=== PATIENT | female | born 1980 | race Caucasian/White ===

== ENCOUNTER → 2020-09-25 16:53 | Outpatient (CLI) | payer OTHER, SELFPAY ==
--- NOTE | ~2020-09-25 | MM_ITS ---
EXAMINATION: MM screening bridget BI w memo HISTORY: Screening TECHNIQUE: Craniocaudal and mediolateral oblique 3-D tomosynthesis images were obtained and synthetic 2-D images were generated. CAD analysis was submitted and interpreted. COMPARISON: No prior mammogram is available for comparison at this institution. BREAST PARENCHYMAL COMPOSITION: There are scattered areas of fibroglandular density. FINDINGS: There is no evidence of suspicious mass, calcification, or architectural distortion to sugg est malignancy in either breast. There has been no suspicious interval change. IMPRESSION: 1. No mammographic evidence of malignancy. 2. Recommend routine screening mammography in one year. BI-RADS Category 1: Negative Reviewed, dictated and finalized at location A.
== END ==
PROVIDERS: PCP Family Medicine; Visit Provider Physician Assistant Medical
DX: Z12.31 Encounter for screening mammogram for malignant neoplasm of breast (principal)
CPT/HCPCS: 77063; 77067

== ENCOUNTER 2024-10-08 02:21 | Day surgery (SDC) | payer OTHER, SELFPAY ==
[2024-09-17 13:49] VITALS: BMI 41.2
--- OUTSIDE RECORDS SUMMARY | 2024-10-08 02:23 | XMS_ITS | Clinical Summary ---
Author Organization [address] lt Address [address] [place] [address] Care Team Providers Care Faucet Polisher Name Role Phone Raymon Wilson MD Primary Care Provider + [phone] Allergies No known active allergies Medications metFORMIN (GLUCOPHAGE) 500 mg tablet Take 1 tablet (500 mg total) by mouth daily 05/30/2023 Active rosuvastatin (CRESTOR) 20 mg tablet Take 1 tablet (20 mg total) by mouth daily 05/30/2023 Active Active Problems Problem Noted Date Diagnosed Date No pathologic diagnosis 06/21/2013 Overview (07/02/2016): No diagnosis Surgical History Surgery Date Site/Laterality Comments OTHER SURGICAL HISTORY 2004 Miscarriage: D & C OTHER SURGICAL HISTORY 2001 : OTHER SURGICAL HISTORY : spontaneous OTHER SURGICAL HISTORY 2006 : OTHER SURGICAL HISTORY 2007 : Medical History Medical History Date Comments Hx Other Medical 2003 Miscarriage Hx Other Medical 2001 ; Outc ome: 40 week Female Hx Other Medical ; Outc ome: Unknown sex Hx Other Medical 2006 ; Outc ome: 38 week Female Hx Other Medical 2007 ; Outc ome: 39 week Female Family History Medical History Relation Name Comments Diabetes Father Diabetes mellit us; Hyperlipidemia Father Hyperlipidemi a; Hypertension Father Hypertension; Colon cancer Sister Cancer, colon; Relation Name Status Comments Father Sister Social History Tobacco Use Types Packs/Day Years Used Date Smoking Tobacco: Never Assessed Alcohol Use Standard Drinks/Week Comments Yes 0 (1 standard drink = 0.6 oz pur e alcohol) Comments Unknown Sex and Gender Information Value Date Recorded Sex Assigned at Not on file 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 Gender Identity Not on file Sexual Orientation Not on file Obstetrics History Last Filed Vital Signs Vital Sign Reading Time Taken Comments Blood Pressure 124/74 07/05/2023 8:11 AM CDT Pulse 101 07/05/2023 8:11 AM CDT Temperature 36.8 C (98.3 F) 07/05/2023 8:11 AM CDT Respiratory Rate 16 07/05/2023 8:11 AM CDT Oxygen Saturation 97% 07/05/2023 8:11 AM CDT Inhaled Oxygen Concentration - - Weight 81.6 kg (180 lb) 07/05/2023 8:11 AM CDT Height 152.4 cm (5') 07/05/2023 8:11 AM CDT Body Mass Index 35.15 07/05/2023 8:11 AM CDT Plan of Treatment Health Maintenance Due Date Last Done Comments Breast Cancer Screening-Mammogram 1978 Cervical Cancer Screening 1978 Colon Cancer Screening-Colonoscopy 1978 Depression Screening 1978 Hepatitis C Screening 1978 DTaP/Tdap/Td Vaccine (1 - Tdap) 1989 Hepatitis B Screening 1996 Regular Well Visit/Exam 18-64 1996 Influenza Vaccine (#1) 2024 HPV Vaccines Aged Out No longer eligi ble based on patient's age to complete this topic Pneumococcal vaccine <65 Aged Out No longer eligible based on patient's age to complete this topic Insurance [place] [address] Care Teams Faucet Polisher Relationship Specialty Start Date End Date Raymon Wilson MD [address] [place] [address] PCP - General Family Medicine 07/05/23
--- OUTSIDE RECORDS SUMMARY | 2024-10-08 02:23 | XMS_ITS | Clinical Summary ---
Author Organization [facility] Address [address] [place] [address] Care Team Providers Care Musical Instrument Maker Or Repairer Name Role Phone Raymon Wilson MD Primary Care Provider Source Comments [facility],non-owned Affiliates and Associated Physician Practices is amultiple site organization consisting of ambulatory clinics and hospital sitesin [place], [place], [place] and [place]. This disclosure is being madepursuant to the Care Everywhere program and may not contain all information available regarding this patient. Last updated 17.[facility] Allergies No known active allergies Medications * Be aware that medications may not be up to date on this document. Alwaysverify current medications with the patient. tobramycin (TOBREX) 0.3 % ophthalmic solution Instill 1 drop into left eye 4 times daily 5 mL 11/25/2018 Active Social History Tobacco Use Types Packs/Day Years Used Date Smoking Tobacco: Never Assessed Comments No Sex and Gender Information Value Date Recorded Sex Assigned at Not on file Legal Sex Female 10:52 AM CDT Gender Identity Not on file Sexual Orientation Not on file Last Filed Vital Signs Vital Sign Reading Time Taken Comments Blood Pressure 122/78 11/25/2018 11:31 AM CDT Pulse 102 11/25/2018 11:31 AM CDT Temperature 36.6 C (97.9 F) 11/25/2018 11:31 AM CDT Respiratory Rate - - Oxygen Saturation - - Inhaled Oxygen Concentration - - Weight 95.7 kg (211 lb) 11/25/2018 11:31 AM CDT Height 154.9 cm (5' 1) 11/25/2018 11:31 AM CDT Body Mass Index 39.87 11/25/2018 11:31 AM CDT Plan of Treatment Health Maintenance Due Date Last Done Comments COLOGUARD (AGES 45-75) - COL ON CA SCREENING 1978 COLON MONITORING 1978 COLONOSCOPY - COLON CA SCREENING 1978 CT COLONOGRAPHY - COLON CA SCREENING 1978 Colorectal Cancer Screening 1978 FIT - COLON CA SCREENING 1978 FLEX SIG - COLON CA SCREENING 1978 LIPID TESTING 1978 MAMMOGRAM 1978 HIV SCREENING 1993 HEPATITIS C SCREENING 09/26/1996 DTAP/TDAP/TD VACCINES (1 - Tdap) 1997 HEPATITIS B VACCINE (1 of 3 - 19+ 3-dose series) 1997 SCREENING FOR DIABETES 11/25/2018 COVID-19 VACCINE (1 - 2023-2 5 season) 2023 DEPRESSION SCREENING 03/28/2024 INFLUENZA VACCINE (#1) 2024 ZOSTER VACCINE (1 of 2) 2028 HIB VACCINE Aged Out No longer eligi ble based on patient's age to complete this topic HPV VACCINE Aged Out No longer eligi ble based on patient's age to complete this topic MENINGOCOCCAL (Group B) VACC INE SHARED DECISION-MAKING Aged Out No longer eligibl e based on patient's age to complete this topic MENINGOCOCCAL GROUPS A/C/Y/W VACCINE Aged Out No longer eligible b ased on patient's age to complete this topic PNEUMOCOCCAL VACCINE Aged Out No long er eligible based on patient's age to complete [place] [address] [facility] Care Teams Musical Instrument Maker Or Repairer Relationship Specialty Start Date End Date Raymon Wilson MD [address] [place] [address] PCP - General Family Medicine 11/25/18
--- OUTSIDE RECORDS SUMMARY | 2024-10-08 02:23 | XMS_ITS | Clinical Summary ---
Author Organization [facility] Address [address] [address] Phone Care Team Providers Care Strip Cutting Machine Operator Name Role Phone Raymon Wilson MD Primary Care Provider [phone] Social History Tobacco Use Types Packs/Day Years Used Date Smoking Tobacco: Never Assessed Comments Unknown Sex and Gender Information Value Date Recorded Sex Assigned at Not on file Legal Sex Female 12:14 AM CDT Gender Identity Not on file Sexual Orientation Not on file Plan of Treatment Health Maintenance Due Date Last Done Comments Hepatitis C Virus (HCV) Screening 1978 TdaP Immunization 1978 Hepatitis B Immunization (1 of 3 - 19+ 3-dose series) 1997 Pap Smear 10/02/1999 Cervical Cancer Screening (CCS) 2008 HPV/Cotest 2008 Cologuard 10/02/2023 Colonoscopy 10/02/2023 Colorectal Cancer Screening 10/02/2023 Immunochemical Fecal Occult Blood 10/02/2023 SARS-COV-2 Immunization ( season) 2023 Influenza Immunization (#1) 2024 Respiratory Syncytial Virus (RSV) Immunization (Adult) (1 - 1-dose 75+ series) 2053 Human Papillomavirus (HPV) Immunization Aged Out No longer eligible b ased on patient's age to complete this topic Meningococcal Immunization (ACWY) Aged Out No longer eligible based on patient's age to complete this topic Pneumococcal Immunization Combined Aged Out No longer eligible based on patient's age to complete this topic Rotavirus Immunization Aged Out No lo nger eligible based on patient's age to complete this topic Care Teams Strip Cutting Machine Operator Relationship Specialty Start Date End Date Raymon Wilson MD [address] [address] PCP - General Family Medicine 11/27/20
--- OUTSIDE RECORDS SUMMARY | 2024-10-08 02:23 | XMS_ITS | Referral Summary ---
Author Organization [address] lt Address [address] [place] [address] Care Team Providers Care Brake Lining Curer Name Role Phone Raymon Wilson MD Primary Care Provider + [phone] Allergies No known active allergies Medications metFORMIN (GLUCOPHAGE) 500 mg tablet Take 1 tablet (500 mg total) by mouth daily 05/30/2023 Active rosuvastatin (CRESTOR) 20 mg tablet Take 1 tablet (20 mg total) by mouth daily 05/30/2023 Active Active Problems Problem Noted Date Diagnosed Date No pathologic diagnosis 06/21/2013 Overview (07/02/2016): No diagnosis Social History Tobacco Use Types Packs/Day Years Used Date Smoking Tobacco: Never Assessed Alcohol Use Standard Drinks/Week Comments Yes 0 (1 standard drink = 0.6 oz pur e alcohol) Comments Unknown Sex and Gender Information Value Date Recorded Sex Assigned at Not on file 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
--- NOTE | 2024-10-08 07:52 | WPDANESEPPF ---
Anes - Initial Pre Proc Eval Procedure: Operation Date: 10/08/24 08:30 Proposed Procedures p Screening Colonoscopy - Kole Rudolph DO Date/Time: 10/08/24 07:52 Surgeon: Kole Rudolph DO Pre Op Diagnosis: Neoplasm screening Patient Data Age: 44 Gender: F Height: 1.45 m Weight: 86.5 kg Allergies Allergy/AdvReac Type Severity Reaction Status Date / Time No Known Allergies Allergy Verified 10/08/24 07:54 Home Medications ?Medication ?Instructions ?Recorded ?Confirmed ?Type ferrous sulfate 325 mg (65 mg 325 mg PO BID #60 tabs 09/15/24 09/25/24 Rx iron) tablet metformin 500 mg tablet,extended 500 mg PO DAILY #90 tabs 09/25/24 09/25/24 Rx release 24 hr rosuvastatin 20 mg tablet (Crestor) 20 mg PO DAILY #90 tabs 09/25/24 09/25/24 Rx Patient hx anesthesia problems: none Family hx anesthesia problems: none Results Review: All pre-operative results and documents have been reviewed as part of the pre-operative evaluation. [facility], [facility] Past Medical History Medical History (Updated 10/08/24 @ 07:53 by River Feldman DO) Diabetes mellitus Mixed hyperlipidemia BMI 37.0-37.9, adult BMI greater than 40 Family History Family History Father Hypertension Family history of heart disease in male family member before age 55 Sibling Carcinoma of colon Mother Family history of malignant neoplasm of breast in first degree relative Social History Social History Smoking status: Never smoker Alcohol intake: current Substance use: never Substance use type: does not use Living arrangements: with family Spiritual care concerns: No Anes - Eval Final PreProcedure Day of Procedure 10/08/24 07:52 Patient weight: morbidly obese Heart: regular rate and rhythm Lungs: clear to auscultation Airway: Mallampati scale class II Neurological: alert and oriented Last oral intake: >/= 8 hours ASA classification: III Emergent: no Anesthetic plan: proceed Anesthesia type and monitoring: general GIVS and standard monitoring Results Review: All pre-operative results and documents have been reviewed as part of the pre-operative evaluation. Informed Consent: The patient's anesthetic plan and its attendant risks and benefits were discussed with the patient/family/POA. Questions were solicited and answers provided to the satisfaction of the patient/family/POA.
[2024-10-08 07:58] LABS: BEDSIDEPREGUCG Negative (Negative)
[2024-10-08] MEDS: LACTATED RINGERS 1,000 ML 150 ML IV CONT (08:07)
--- NOTE | 2024-10-08 08:42 | P.HP_ITS ---
H&P: HPI History of Present Illness Date/Time: 10/08/24 08:42 Chief Complaint: family history of colon cancer Narrative: this is a 44-year-old woman who presents for her 1st colonoscopy. She denies any hematochezia or melena. She has a family history of colon cancer in her sister who was diagnosed at 42. Review of Systems Review of Systems: All systems reviewed & are unremarkable except as noted in HPI and below Constitutional: Constitutional: Denies chills, Denies fever(s), Denies headache(s) and Denies weight loss Eyes: Eyes: Denies change in vision ENT: Denies dizziness, Denies headache(s), Denies neck mass and Denies throat swelling Cardiovascular: Cardiovascular: Denies chest pain, Denies lightheadedness and Denies dyspnea Respiratory: Respiratory: Denies cough, Denies dyspnea and Denies wheezing Gastrointestinal: Gastrointestinal: Denies abdominal pain, Denies change in bowel habits, Denies nausea and Denies vomiting Genitourinary: Genitourinary: Denies hematuria and Denies dysuria Musculoskeletal: Musculoskeletal: Reports as per HPI Integumentary/Breasts: Skin/Breast: Reports as per HPI Neurologic: Denies dizziness and Denies headache(s) Allergic/Immunologic: Allergic/Immunologic: Denies throat swelling and Denies wheezing [facility] Past Medical History Medical History (Updated 10/08/24 @ 07:53 by River Feldman DO) Diabetes mellitus Mixed hyperlipidemia BMI 37.0-37.9, adult BMI greater than 40 Family History Family History Father Hypertension Family history of heart disease in male family member before age 55 Sibling Carcinoma of colon Mother Family history of malignant neoplasm of breast in first degree relative Social History Social History Smoking status: Never smoker Alcohol intake: current Substance use: never Substance use type: does not use Living arrangements: with family Spiritual care concerns: No Meds Home Medications and Allergies Home Medications ?Medication ?Instructions ?Recorded ?Confirmed ?Type ferrous sulfate 325 mg (65 mg 325 mg PO BID #60 tabs 09/15/24 09/25/24 Rx iron) tablet metformin 500 mg tablet,extended 500 mg PO DAILY #90 tabs 09/25/24 09/25/24 Rx release 24 hr rosuvastatin 20 mg tablet (Crestor) 20 mg PO DAILY #90 tabs 09/25/24 09/25/24 Rx Allergies Allergy/AdvReac Type Severity Reaction Status Date / Time No Known Allergies Allergy Verified 10/08/24 07:54 Exam Const: General: no acute distress and alert Orientation/consciousness: patient oriented x3 HENMT: Head: normocephalic and atraumatic Ears: hearing grossly normal bilaterally Face/Nose/Sinus: Normal nares present Mouth: Yes Normal oral and palatal mucosa present Eyes: Periorbital: periorbital findings normal Sclera: sclerae normal EOM: EOMs intact bilaterally Neck: Neck: normal visual inspection, no lymphadenopathy and trachea midline Chest: Chest palpation & inspection: normal inspection of the chest Resp: Effort & Inspection: normal respiratory effort Auscultation: clear to auscultation bilaterally Cardio: Jugular venous distension: no JVD Rate: regular rate Rhythm: regular rhythm Heart sounds: S1 normal heart sound present and S2 normal heart sound present Peripheral pulses: Peripheral pulses 2+ throughout GI: Inspection: normal to inspection GI Palp: Yes Soft to palpation, No Tenderness to palpation present (GI), No Guarding due to palpation present (GI) and No Rebound tenderness present Percussion: Yes normal to percussion Auscultation: normal bowel sounds : General: Yes no CVA tenderness Back/Spine/Pelvis: Back: no CVA tenderness Neuro: General: patient oriented x3, no focal motor deficits and CN's II-XI intact bilaterally Cognition (Neuro): normal cognition Speech: normal speech Motor exam (neuro): 5/5 motor strength present throughout Extrem: General: capillary refill normal and no clubbing, cyanosis or edema Assessment and Plan Assessment and plan (1) Screening for colon cancer: Code(s): Z12.11 - Encounter for screening for malignant neoplasm of colon Status: Acute Assessment and Plan: I have recommended colonoscopy. I have discussed the procedure, risks, benefits, and alternatives. Questions were answered. Patient is agreeable to proceed. (2) Family history of malignant neoplasm of colon in first degree relative diagnosed when younger than 60 years of age: Code(s): Z80.0 - Family history of malignant neoplasm of digestive organs Status: Acute
[2024-10-08 09:06] VITALS: BP 97/49; PULSE 73; RESP 21; O2SAT 100
[2024-10-08 09:16] VITALS: BP 107/59; PULSE 68; RESP 24; O2SAT 100
[2024-10-08 09:26] VITALS: BP 115/65; PULSE 70; RESP 19; O2SAT 100
== END 2024-10-08 09:38 | disposition home or self-care (01) ==
PROVIDERS: Anesthesiology; PCP Family Medicine; Visit Provider Surgery
PROC: 0DJD8ZZ Inspection of Lower Intestinal Tract, Via Natural or Artificial Opening Endoscopic (ICD-10-PCS; CPT 45378; principal; 2024-10-08 08:30)
DX: Z12.11 Encounter for screening for malignant neoplasm of colon (principal); K57.30 Diverticulosis of large intestine without perforation or abscess without bleeding; Z80.0 Family history of malignant neoplasm of digestive organs; E11.9 Type 2 diabetes mellitus without complications; E66.01 Morbid (severe) obesity due to excess calories; Z68.41 Body mass index [BMI] 40.0-44.9, adult
CPT/HCPCS: 45378; 82948; J2003; J2704; J7120

== ENCOUNTER 2024-11-08 13:26 | Outpatient (CLI) | payer OTHER, SELFPAY ==
--- OUTSIDE RECORDS SUMMARY | 2024-11-08 13:29 | XMS_ITS | Clinical Summary ---
Author Organization [address] lt Address [address] [place] [address] Care Team Providers Care Beader Name Role Phone Raymon Wilson MD Primary Care Provider + [phone] Allergies No known active allergies Medications metFORMIN [...] on file Legal Sex Female 7:58 AM INTEGRITY DIRECTOR Gender Identity Not on file Sexual Orientation [...] patient's age to complete this topic Insurance [facility] HMO/PPO Address: [facility] [address] [place] [address] [place] [address] Care Teams Beader Relationship Specialty Start Date End Date Raymon Wilson MD [address] [place] [address] PCP - General Family Medicine 07/05/23
--- OUTSIDE RECORDS SUMMARY | 2024-11-08 13:29 | XMS_ITS | Clinical Summary ---
Author Organization [email or web address] Address [address] [place] [address] Care Team Providers Care Engine Inspector Name Role Phone Raymon Wilson MD Primary Care Provider [phone] Source Comments [email or web address],non-owned Affiliates and Associated Physician Practices is amultiple site organization consisting of ambulatory clinics and hospital sitesin [place], [place], [place] and [place]. This disclosure is being madepursuant to the Care Everywhere program and may not contain all information available regarding this patient. Last updated 17.[email or web address] Allergies No known active allergies Medications * [...] patient's age to complete [place] [address] [facility] Care Teams Engine Inspector Relationship Specialty Start Date End Date Raymon Wilson MD [address] [place] [address] PCP - General Family Medicine 11/25/18
--- OUTSIDE RECORDS SUMMARY | 2024-11-08 13:29 | XMS_ITS | Clinical Summary ---
Author Organization [facility] Address [address] [address] Phone Care Team Providers Care Syrup Blender Name Role Phone Raymon Wilson MD Primary Care Provider [phone] Social History Tobacco Use Types Packs/Day Years [...] age to complete this topic Care Teams Syrup Blender Relationship Specialty Start Date End Date Raymon Wilson MD [address] [address] PCP - General Family Medicine 11/27/20
--- NOTE | 2024-11-08 13:54 | ECHO_ITS ---
Patient Info Name: Andreia Hardy Age: 44 years : 1980 Gender: Female Ht: 60 in Wt: 200 lbs BSA: 2.01 m2 HR: 70 bpm BP: 112 / 77 mmHg Technical Quality: Good Exam Date: 11/08/2024 2:03 PM Patient Status: O Admit Date: 11/08/2024 Exam Type: CA echo doppler color flow Complete two-dimensional, color flow and Doppler transthoracic echocardiogram is performed. Registered Associate: Jane Bosch Attending Provider: Evette Coyne Summary 1. Complete two-dimensional, color flow and Doppler transthoracic echocardiogram is performed. 2. Left ventricular chamber dimension is normal. 3. Left ventricular systolic function is normal, estimated at 60-65. 4. The left ventricular diastolic function is normal. 5. E/e' 6 is not elevated. 6. Left atrial chamber dimension is mildly enlarged. 7. There is trace tricuspid valve regurgitation. 8. No pulmonary hypertension, estimated pulmonary arterial systolic pressure is 22 mmHg. 9. There is trace pulmonic regurgitation. Left Ventricle E/e' 6 is not elevated. Left ventricular chamber dimension is normal. Left ventricular systolic function is normal, estimated at 60-65. The left ventricular diastolic function is normal. Right Ventricle Right ventricular chamber dimension is normal. Right ventricular systolic function is normal and with normal TAPSE 1.8 cm. Left Atria Left atrial chamber dimension is mildly enlarged. Right Atria Right atrial chamber dimension is normal. Aortic Valve The aortic valve is trileaflet. There is no aortic valve stenosis. There is no aortic valve regurgitation. Pulmonic Valve There is trace pulmonic regurgitation. Mitral Valve There is no mitral valve stenosis. There is no mitral valve regurgitation. Tricuspid Valve There is trace tricuspid valve regurgitation. No pulmonary hypertension, estimated pulmonary arterial systolic pressure is 22 mmHg. Pericardium/Pleural There is no pericardial effusion. Inferior Vena Cava Normal inferior vena cava with >50% collapse upon inspiration consistent with normal right atrial pressure, 5 mmHg. Aorta The aortic root size at the sinus of Valsalva is normal. Left Ventricular Outflow Tract Name Value Normal LVOT 2D LVOT Diameter 2.0 cm LVOT Doppler LVOT Peak Velocity 101 cm/s LVOT Peak Gradient 4 mmHg LVOT Mean Gradient 2 mmHg LVOT VTI 19 cm LVOT VTI/AV VTI Ratio 0.7 LVOT Stroke Volume 62 ml LVOT CO 14.5 l/min LVOT CI 7.2 l/min/m2 Pulmonic Valve Name Value Normal PV Doppler PV Peak Velocity 94 cm/s PV Peak Gradient 4 mmHg Mitral Valve Name Value Normal MV Diastolic Function MV E Peak Velocity 68 cm/s MV A Peak Velocity 65 cm/s MV E/A 1.1 MV Decel Time (PW) 275 ms MV Annular TDI MV E/e' (Septal) 7.5 MV E/e' (Lateral) 6.3 MV E/e' (Average) 6.9 Tricuspid Valve Name Value Normal TV Regurgitation Doppler TR Peak Velocity 208 cm/s TR Peak Gradient 17 mmHg Estimated PAP/RSVP RA Pressure 5 mmHg <=5 PA Systolic Pressure 22 mmHg <36 RV Systolic Pressure 22 mmHg <36 TV Annular TDI TV Lateral Yessica s' Velocity 17.2 cm/s >=9.5 Aorta Name Value Normal Ascending Aorta Ao Root Diameter (MM) 3.2 cm Ao Root Diam Index (MM) 1.6 cm/m2 Aortic Valve Name Value Normal AV Doppler AV Peak Velocity 145 cm/s AV Peak Gradient 8 mmHg AV Mean Gradient 5 mmHg AV VTI 29 cm AV Area (Cont Eq VTI) 2.2 cm2 >=3.0 AV Area (Cont Eq Mahendra) 2.3 cm2 AV DI (Mahendra) 0.69 AV Regurgitation 2D LVOT Area 3.3 cm2 Ventricles Name Value Normal LV Dimensions 2D/MM IVS Diastolic Thickness (2D) 0.8 cm 0.6-1.0 LVID Diastole (2D) 5.1 cm 3.8-5.2 LVIW Diastolic Thickness (2D) 0.8 cm 0.6-0.9 LVID Systole (2D) 3.4 cm 2.2-3.5 LVOT Diameter 2.0 cm LV Mass (2D Cubed) 145.26 g 67.00-162.00 LV Mass Index (2D Cubed) 72 g/m2 43-95 Relative Wall Thickness (2D) 0.31 <=0.42 LV Fractional Shortening/Ejection Fraction 2D/MM LV Fractional Shortening (2D) 34 % 27-45 LV EF (2D Teichholz) 62 % LV Diastolic Volume (4C MOD) 112 ml LV EF (4C MOD) 51 % LV Diastolic Volume (2C MOD) 80 ml LV EF (2C MOD) 56 % LV Diastolic Volume (BP MOD) 97 ml 46-106 LV Diastolic Volume Index (BP MOD) 48 ml/m2 29-61 LV Systolic Volume (BP MOD) 45 ml 14-42 LV Systolic Volume Index (BP MOD) 22 ml/m2 8-24 LV EF (BP MOD) 54 % 54-74 LV Diastolic Length (4C) 7.8 cm LV Systolic Length (4C) 6.5 cm LV Stroke Volume (4C MOD) 57 ml Atria Name Value Normal LA Dimensions LA Volume (4C A-L) 51 ml LA Volume (BP A-L) 43 ml RA Dimensions RA Systolic Major Edna Length (4C) 4.7 cm 2.2-2.8 RA Area (4C) 12.9 cm2 <=18.0 Report Signatures
--- NOTE | 2024-11-20 11:58 | WPDHOLTEREM ---
Holter/Event Monitor Holter/Event Monitor Date of procedure: 11/08/24 Holter/Event Procedure: 3-7 Day Holter Monitor Indications: Palpitations Conclusion: 1. 3 days holter monitor on 11/08/24. 2. Underlying rhythm is sinus rhythm. HR range 49-157 bpm; average 85 bpm. HR at 49 bpm on 11/10/24 at 7:21 am. HR at 157 bpm on 11/11/24 at 2:30 pm. 3. There are rare premature supraventricular complexes. No supraventricular tachycardia. 4. There are rare premature ventricular complexes. No ventricular tachycardia. 5. No significant pauses greater than 3 seconds. 6. No symptoms available for correlation.
== END 2024-11-08 13:27 | disposition home or self-care (01) ==
PROVIDERS: PCP Family Medicine; Visit Provider Physician Assistant Medical
DX: R00.2 Palpitations (principal); R06.09 Other forms of dyspnea
CPT/HCPCS: 93242; 93306